=== PATIENT | female | born 1940 | race Caucasian/White ===

== ENCOUNTER 2017-02-08 16:30 | Observation (INO) | payer OTHER, BC ==
[~2017-02-08] VITALS: Ht 160 cm; Wt 71.9 kg
[~2017-02-08 16:30] MED LIST: ARMD EYE SUPPORT; ASPIRIN325 MG PO; CALAN SR,COVER180 MG PO; GLUCOSA-CHOND-1 EACH PO; HAIR, SKIN & N1 EAC1 PO; LUTEIN6 MG PO; VITAMIN D31000 UNIT PO; XARELTO20 MG PO
[2017-02-08 17:03] LABS: HEMATOCRIT 41.2 % (36.0-46.0); MCH 28.4 PG (29.0-34.0); MCHC 32.8 G/DL (30.0-36.0); MCV 86.7 FL (83-99); MEAN PLAT.VOLUME 10.6 uM^3 (9.5-12.4); PLATELET COUNT 283 K/uL (156-360); RBC DIS.WIDTH-CV 14.4 % (11.8-14.6); RBC DIS.WIDTH-SD 46.1 % (39-53); RED BLOOD COUNT 4.75 M/uL (3.80-5.20); WHITE BLOOD COUNT 12.3 K/uL (4.1-10.2)
[2017-02-08 17:17] LABS: CHLORIDE 104 mEq/L (99-109); POTASSIUM 4.6 mEq/L (3.7-5.4); SODIUM 137 mEq/L (136-147)
[2017-02-08 17:19] LABS: GLUCOSE 114 mg/dL (70-99)
[2017-02-08 17:20] LABS: ANION GAP 11 MEQ/L (2-14)
[2017-02-08 17:23] LABS: GFR ESTIMATE (CALCULATED) 51 mL/min/
[2017-02-08 17:24] LABS: UREA NITROGEN (BUN) 16 mg/dL (9-23)
[2017-02-08 17:30] LABS: TROP-I INTERPRETATION NEGATIVE; TROPONIN-I < 0.01 ng/mL (0.0-0.30)
[2017-02-08] MEDS ORDERED: XARELTO15 MG PO (18:51)
[2017-02-08] MEDS ORDERED: CARTIA XT240 MG PO (18:51)
[2017-02-08] MEDS ORDERED: CHILD ASPIRIN81 M1 PO (18:52)
[2017-02-08 20:40] VITALS: BP 124/55
[2017-02-08 23:15] LABS: TROP-I INTERPRETATION NEGATIVE; TROPONIN-I < 0.01 ng/mL (0.0-0.30)
[2017-02-08 23:48] VITALS: BP 117/56
[2017-02-09 03:48] VITALS: BP 150/64
[2017-02-09 06:23] LABS: TROP-I INTERPRETATION NEGATIVE; TROPONIN-I 0.05 ng/mL (0.0-0.30)
[2017-02-09 06:29] LABS: ALKALINE PHOSPHATASE 49 IU/L (3-129); ANION GAP 8 MEQ/L (2-14); CHLORIDE 108 MEQ/L (99-109); GFR ESTIMATE (CALCULATED) > 59 mL/min/; GLUCOSE 101 mg/dL (70-99); POTASSIUM 4.3 MEQ/L (3.7-5.4); SAMPLE HEMOLYSIS CHECK 0; SAMPLE ICTERIC CHECK 0; SAMPLE LIPEMIA CHECK 0; SODIUM 140 MEQ/L (136-147); TOTAL BILIRUBIN 0.5 MG/DL (0.0-1.0); UREA NITROGEN (BUN) 13 mg/dL (9-23)
[2017-02-09 07:29] LABS: HEMATOCRIT 37.6 % (36.0-46.0); MCH 28.2 PG (29.0-34.0); MCHC 31.9 G/DL (30.0-36.0); MCV 88.3 FL (83-99); PLATELET COUNT 260 K/uL (156-360); RBC DIS.WIDTH-CV 14.8 % (11.8-14.6); RBC DIS.WIDTH-SD 47.7 % (39-53); RED BLOOD COUNT 4.26 M/uL (3.80-5.20); WHITE BLOOD COUNT 8.7 K/uL (4.1-10.2)
[2017-02-09 07:35] VITALS: BP 142/65
[2017-02-09 07:59] VITALS: BP 138/63
[2017-02-09 11:45] VITALS: BP 113/57; BP 128/61
== END 2017-02-09 13:47 | disposition home or self-care (01) ==
LOC: EME 16:30 → 5WEST 18:50 → EDOF 18:50 → 5WEST 20:05
PROVIDERS: Internal Medicine
DX: R07.89 Other chest pain (principal); I48.0 Paroxysmal atrial fibrillation; I10 Essential (primary) hypertension; Z79.01 Long term (current) use of anticoagulants
CPT/HCPCS: 71020; 71250; 80048; 80053; 84484; 85027; 93005; 99281; 99285; G0378; J7030